=== PATIENT | female | born 1970 | race Caucasian/White ===

== ENCOUNTER 2023-08-18 18:35 | Emergency (ER) | payer OTHER ==
[~2023-08-18] VITALS: Ht 154.9 cm; Wt 79.4 kg
[2023-08-18 18:46] VITALS: TEMP 97.9
[2023-08-18 20:17] VITALS: BP 138/94; O2SAT 98
== END 2023-08-18 20:17 | disposition home or self-care (01) ==
LOC: ER 18:45
DX: M25.511 Pain in right shoulder (principal); M54.2 Cervicalgia; Z88.0 Allergy status to penicillin; W01.0XXA Fall on same level from slipping, tripping and stumbling without subsequent striking against object, initial encounter; Y93.89 Activity, other specified; Y92.89 Other specified places as the place of occurrence of the external cause; Y99.8 Other external cause status
CPT/HCPCS: 72040-TC; 73030-TC